=== PATIENT | female | born 2000 | race African-American/Black ===

== ENCOUNTER 2025-07-17 06:35 | Outpatient (REF) | payer OTHER, SELFPAY ==
--- NOTE | ~2025-07-17 | US_ITS ---
EXAMINATION: US OBSTETRICAL ULTRASOUND CLINICAL INFORMATION: Positive hCG 51, check IUP. COMPARISON: None available. LMP: 07/01/2021. Gestational age by maternal dates is 2 weeks and 2 days. Estimated date of delivery by maternal dates is 04/07/2026. TECHNIQUE: Ultrasound of the maternal pelvis is performed using transabdominal and transvaginal transducers. Transvaginal imaging is performed due to inadequate visualization transabdominally. M-mode Doppler is also performed. FINDINGS: Uterus is anteverted and anteflexed. It is normal in size and shape. The endometrial stripe measures 4 mm in thickness, and is uniform without irregularity. There is no definite gestational sac identified. There is no decidual reaction present. The cervix images normally. The myometrium has normal echogenicity without focal mass. MATERNAL ADNEXA: The right maternal ovary measures 3.1 x 1.4 x 1.3 cm. Normal sonographic appearance. The left maternal ovary measures 2.5 x 2.0 x 1.7 cm. Normal sonographic appearance. There is a dominant follicular cyst measuring 1.7 x 1.5 x 1.0 cm. There is no significant maternal adnexal mass. No maternal pelvic ascites. US/US OB pelvic and transvaginal IMPRESSION: 1. Normal uterus and 4 mm endometrial stripe. No evidence of gestational sac or decidual reaction. This is most likely secondary to early stage of the (estimated at 2 weeks and 2 days by maternal dates). Recommend monitoring of beta hCG and repeat scanning as indicated. 2. Normal ovaries bilaterally. There is no adnexal mass or free pelvic fluid. Electronically signed by: Regan Ibanez MD 07/17/2025 03:24 PM EDT
--- OUTSIDE RECORDS SUMMARY | 2025-07-17 06:38 | XMS_ITS | Encounter Summary ---
Author Organization [facility] Address [address] [place] [address] Care Team Providers Care Dredge Pumper Name Role Phone Ruslan Petersen Primary Care Provider Reason for Visit * Reason Comments Office Visit: Converted Data Conversion Encounter Details Date Type Department Care Team (Late st Contact Info) Description 04/27/2023 Dental Interim Note [facility] Dentistry [address] [place] [address] Default, [facility] Provider Social History Tobacco Use Types Packs/Day Years Used Date Smoking Tobacco: Never Assessed Social Connections Answer Date Recorded Social Connections and Isolation 0 06/13/2022 Financial Resource Strain Answer Date R ecorded Financial Resource Strain 0 2021 Stress Answer Date Recorded Stress 0 06/13/2022 Physical Activity Answer Date Recorded Physical Activity 0 06/13/2022 Food Insecurity Answer Date Recorded Food 0 06/13/2022 Transportation Needs Answer Date Record ed Transportation 0 06/13/2022 Housing Stability Answer Date Recorded Housing 0 06/13/2022 Safety and Environment Answer Date Ney rded Safety 0 06/13/2022 Utilities Answer Date Recorded Utilities 0 06/13/2022 Employment Answer Date Recorded Employment 0 06/13/2022 Comments Unknown Sex and Gender Information Value Date Recorded Sex Assigned at Female 05/19/2023 3:45 PM PDT Legal Sex Female 11:22 PM PST Gender Identity Female 04/13/2023 9:28 AM PDT Sexual Orientation Straight 04/13/2023 9: 28 AM PDT documented as of this encounter Plan of Treatment Scheduled Orders Name Type Priority Associated Diagnoses Order Schedule PERIODIC ORAL EVALUATION - ESTABLISHED PATIENT Dental Procedures Routine 1 Occurren renny starting 04/14/2023 15 O 15 O RESIN-BASED COMPOSITE - 1 SURFACE, POSTERIOR Dental Procedures Routine 1 Occurrenc es starting 04/14/2023 documented as of this encounter Visit Diagnoses Not on filedocumented in this encounter Additional Health Concerns Assessment Noted Time PHQ-9 Depression Total Score: 12 023 11:30 AM PST documented as of this encounter Care Teams Dredge Pumper Relationship Specialty Start Date End Date Ruslan Petersen PA [address] [place] [id number] PCP - General 08/04/22 05/18/23 documented as of this encounter
--- OUTSIDE RECORDS SUMMARY | 2025-07-17 06:38 | XMS_ITS | Clinical Summary ---
Author Organization [facility] Address [address] [place] [address] Care [address] Attendant Name Role Phone Unavailable Primary Care Provider Unavailabl e Source Comments PLEASE NOTE, if this patient is a minor, it may be UNLAWFUL to discuss sensitive information that is contained in these records (such as FAMILY PLANNING, MENTAL HEALTH or SUBSTANCE ABUSE) with the minor patient's parent or other person without the patient's specific authorization.[facility] Allergies No known active allergies Medications * This document contains information received from the source organization and may not represent a complete record from that organization. ulipristaL (SAMARA) 30 mg tabletIndications :Surveillance of previously prescribed implantable subdermal contraceptive Take 1 Tablet by mouth once for 1 dose Take within 120 hours of unprotected intercourse. 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 08/15/2020 Cannabis dependence 06/11/2020 Overweight 07/12/2019 Chronic depression 08/25/2018 Posttraumatic stress disorder 08/25/2018 Anxiety 09/27/2016 Immunizations Immunization Administration Dates Next Due DTAP (Infanrix) 08/18/2005 Flu, Multi Dose 0.5 ML 07/16/2017 HEP B, PED/ADOL ([id number]/RECOMBIVAX-PEDS) 07/16/2017,08/11/2016,08/11/2016 HPV 9 (Gardasil) 04/14/2019,06/09/2016 Hep A, Ped/adol, 2 Dose 08/11/2016,08/18/2005 Hep A, adult 08/11/2005 Hep B, Adult/Adol ([id number]/RECOMBIVAX-ADULT) 01/01/2018,07/18/2017 Hpv, Unspecified 04/14/2019,01/01/2018, 6 INFLUENZA, SEASONAL, INJECTABLE 06/30/2016 IPV (IPOL) 07/16/2017,06/09/2016,08/18/2005 MENINGOCOCCAL ACWY, UNSPECIFIED 01/01/2018 MENINGOCOCCAL MCV4, HISTORICAL 01/01/2018 MENINGOCOCCAL MCV4P (MENACTRA) 08/11/2016 MMR (MMR II/Priorix) 06/09/2016,06/09/20 16,08/18/2005,08/18 Moderna COVID-19 Vaccine, re d cap blue label, 12+ Primary Series 10/15/2021,02/22/2021 TDAP 02/25/2020,07/16/2017,05/09/2013 Varicella (Varivax), Live Vaccine 08/11/2016, Family History Medical History Relation Name Comments Breast cancer Maternal Aunt Depression Maternal Grandmother Diabetes Maternal Grandmother Hypertension Maternal Grandmother Cancer Maternal Uncle Relation Name Status Comments Maternal Aunt Alive Maternal Grandmother Maternal Uncle Social History Tobacco Use Types Packs/Day Years Used Date Smoking Tobacco: Never Passive Smoke Exposure: Never Smokeless Tobacco: Never Tobacco Cessation:Counseling Given: Not Answered Alcohol Use Standard Drinks/Week Comments Not Currently 2 (1 standard drink = 0.6 oz pur e alcohol) ocassionally Social Connections Answer Date Recorded Connectedness 0 08/11/2023 Financial Resource Strain Answer Date R ecorded Financial Resource Strain 0 2022 Stress Answer Date Recorded Stress 0 08/11/2023 Physical Activity Answer Date Recorded Physical Activity 0 06/13/2022 Food Insecurity Answer Date Recorded Food 0 06/22/2024 Transportation Needs Answer Date Record ed Transportation 0 08/11/2023 Housing Stability Answer Date Recorded Housing 0 08/11/2023 Safety and Environment Answer Date Ney rded Safety 0 06/13/2022 Utilities Answer Date Recorded Utilities 0 06/13/2022 Employment Answer Date Recorded Stress 0 08/11/2023 Comments No Sex and Gender Information Value Date Recorded Sex Assigned at Female 05/19/2023 3:45 PM PDT Legal Sex Female 11:22 PM PST Gender Identity Female 04/13/2023 9:28 AM PDT Sexual Orientation Straight 04/13/2023 9: 28 AM PDT Last Filed Vital Signs Vital Sign Reading Time Taken Comments Blood Pressure 123/68 09/08/2023 1:35 PM PST Pulse 76 09/08/2023 1:35 PM PST Temperature 36.6 C (97.8 F) 08/11/2023 2:24 PM PST Respiratory Rate 16 08/11/2023 2:24 PM PST Oxygen Saturation 100% 08/11/2023 2:24 PM PST Inhaled Oxygen Concentration - - Weight 72.6 kg (160 lb) 09/08/2023 1:35 PM PST Height 170.2 cm (5' 7 ) 09/08/2023 1:35 PM PST Body Mass Index 25.06 09/08/2023 1:35 PM PST Plan of Treatment Health Maintenance Due Date Last Done Comments Dental FMX/Pano 2000 HPV Screening (self-collect) 2000 HPV Screening 2000 Hepatitis C Screening 2000 Tobacco Screening 2000 HIV Screening 2015 Relationship Safety Screening/Counseling 2015 Depression Monitoring 03/02/2023 11/30/2022 , 12/24/2021, 03/11/2021, Additional history exists Anxiety Screening 12/01/2023 11/30/2022 Dental BW 05/22/2024 05/20/2023 Dental Examination 05/22/2024 05/20/2023 Dental Perio Charting 05/22/2024 05/20/2023 Dental Prophy 05/29/2024 05/27/2023 Chlamydia Screening 08/02/2024 08/02/2023, 11/30/2022, 05/06/2022, Additional history exists Gonorrhea Screening 08/02/2024 08/02/2023, 11/30/2022, 05/06/2022, Additional history exists Hypertension Screening (#1) 09/07/2024 Alcohol and Drug Screen 09/27/2024 05/19/2023 [id number] ( season) 2025 022, 02/22/2021 Imm-Influenza (#1) 2025 07/16/2017, 1 , 08/28/2008, Additional history exists Pap Smear 02/23/2026 02/23/2023, 05/06/2022 Cervical Cancer Screening 02/24/2028 Pap + HPV 02/24/2028 02/23/2023 Imm-DTaP/Tdap/Td (9 - Td or Tdap) 02/24/2030 02/25/2020, 07/16/2017, 05/09/2013, Additional history exists Imm-Varicella Completed 08/11/2016, 05/28, 07/08/2006, Additional history exists Imm-Hepatitis B Completed 01/01/2018, 06/28, 07/16/2017, Additional history exists Syphilis Screening Completed 02/09/2019 Imm-HPV Completed 04/14/2019, 03/27, 01/01/2018, Additional history exists Cervical Ablation/Cold-Knife Conization Discontinued Cervical Cryotherapy Discontinued Colposcopy Discontinued Excision/Leep Discontinued HPV Genotyping Discontinued Vaginal Pap Discontinued Vulvoscopy Discontinued Procedures Procedure Name Priority Date/Time Associated Diagnosis Comments C TRACHOMATIS/N GONORRHOEAE RNA,TMA Routine 08/02/2023 1:33 PM PST Acute vaginitis Surveillance of previously prescribed implantable subdermal contraceptive Full PROPHYLAXIS - ADULT Routine 05/27/2023 2:00 PM PDT Chronic periodontitis, generalized, slight BITEWINGS - FOUR RADIOGRAPHIC IMAGES Routine 05/20/2023 10:00 AM PDT Encounter for dental examination Caries Full PERIODIC ORAL EVALUATION ESTABLISHED PATIENT Routine 05/20/2023 10:00 AM PDT Encounter for dental examination Caries SUREPATH FPGS AND HPV MRNA E6/E7 REFLEX GENOTYPES 16,18/45 Routine 02/23/2023 12:55 PM PDT RPR (DX) RFLX TITER AND FTA Routine 02/09/2019 1:39 PM PDT from Last 3 Months or Most Recently Relevant to Health Maintenance Results * C TRACHOMATIS/N GONORRHOEAE RNA,TMA (08/02/2023 1:33 PM PST) CHLAMYDIA TRACHOMATIS RNA, TMA NOT DETECTED NOT DETECTED 08/03/2023 2:19 PM PST [facility] NEISSERIA GONORRHOEAE RNA, TMA NOT DETECTED NOT DETECTED 08/03/2023 2:19 PM PST [facility] Urine Urine specimen / Unknown 08/02/2023 1:33 PM PST 08/03/2023 5:16 AM PST Narrative [facility] - 08/03/2023 2:20 PM PST The analytical performance characteristics of this assay, when used to test SurePath(TM) specimens have been determined by [employer]. The modifications have not been cleared or approved by the FDA. This assay has been validated pursuant to the CLIA regulations and is used for clinical purposes. . For additional information, please refer to https://education.[employer]/faq/LMO664 (This link is being provided for information/ educational purposes only.) . us Brendan Moore MD LAB BODY FLUIDS AND STOOLS A [facility] Final Result [facility] [address] [phone], * SUREPATH FPGS AND HPV MRNA E6/E7 REFLEX GENOTYPES 16,18/45 (02/23/2023 12:55 PM PDT) Pathologist [facility] CLINICAL INFORMATION None given 3 1:01 PM PDT DATA CONVERSION LMP NONE GIVEN 3 1:01 PM PDT DATA CONVERSION REVIEW MOTHER SUPERIOR SRINI CT(ASCP) CT Screening Location: [address] [place] [address]. [place] [address] 3 1:01 PM PDT DATA CONVERSION PREV. PAP NONE GIVEN 3 1:01 PM PDT DATA CONVERSION PAP WITH CHLAMYDIA GONORRHEA Negative for intraepithelial lesion or malignancy. 3 1:01 PM PDT DATA CONVERSION SOURCE None given 3 1:01 PM PDT DATA CONVERSION COMMENT This Pap test has been evaluated with computer assisted technology. 3 1:01 PM PDT DATA CONVERSION PREV. BX NONE GIVEN 3 1:01 PM PDT DATA CONVERSION HPV MRNA E6/E7, SUREPATH VIAL Not Detected NOT DETECTED 3 1:01 PM PDT DATA CONVERSION STATEMENT OF ADEQUACY 3 1:01 PM PDT DATA CONVERSION COMMENT 3 1:01 PM PDT DATA CONVERSION MOTHER SUPERIOR ROBERT LOPEZ(ASCP) CT Screening Location: [address] [facility] [place] [address] 3 1:01 PM PDT DATA CONVERSION 02/23/2023 12:5 5 PM PDT [facility] Provider Default [facility] Final Res ult DATA CONVERSION * RPR (DX) RFLX TITER AND FTA (02/09/2019 1:39 PM PDT) RPR (DX) W/REFL TITER AND CONFIRMATORY TESTING NON-REACT IFEANYI NON-REACT IFEANYI 02/09/2019 1:39 PM PDT DATA CONVERSION Comment: Test Performed at: [facility] [address] [place] [address] Venecia TOMPKINS M.D., [facility] 02/09/2019 1:39 PM PDT us Maria Teresa Patino COMPUTER ENGINEERING TECHNOLOGIST LAB - BLOOD DRAW Final Result Performing Organization Address City/[facility]/ZIP Co de Phone Number DATA CONVERSION from Last 3 Months or Most Recently Relevant to Health Maintenance Insurance O/P MEDI-BLESSING DENTAL [facility] PPO Member Subscriber Plan / Payer (Ef fective 2023-Present) Name:Barbara Ojeda Relation to Subscriber:Self Name:Barabra Ojeda Payer ID:[id number] (NAIC) Type:Darshan Address: [place] [phone]
== END 2025-07-17 06:36 | disposition home or self-care (01) ==
LOC: HO.UMASIMG 06:35
PROVIDERS: Visit Provider Nurse Practitioner Women's Health
DX: O26.891 Other specified pregnancy related conditions, first trimester (principal); Z3A.01 Less than 8 weeks gestation of pregnancy
CPT/HCPCS: 76801; 76817

== ENCOUNTER → 2025-07-17 13:39 | Outpatient (BNV) | payer OTHER, SELFPAY | PROVIDERS: Visit Provider Radiology Diagnostic Radiology | DX: Z32.01 Encounter for pregnancy test, result positive (principal) | CPT/HCPCS: 76801; 76817 ==